=== PATIENT | female | born 2005 | race Caucasian/White ===

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

== ENCOUNTER 2023-02-09 17:02 | Outpatient (CLI) | payer MEDICAID ==
[~2023-02-09] VITALS: Ht 157.5 cm; Wt 62.2 kg
[~2023-02-09 17:02] MED LIST: CEFD300C3 PO
[2023-02-09 17:30] VITALS: BP 123/93
[2023-02-09 17:49] LABS: CLARITY,URINE CLEAR; COLOR,URINE YELLOW; PROTEIN,URINE 1+ (NEGATIVE)
[2023-02-09 17:50] LABS: AMORPHOUS SEDIMENT,UR MOD AMOR URATES /LPF; BACTERIA,URINE FEW /HPF; BILIRUBIN,URINE NEGATIVE (NEGATIVE); GLUCOSE, URINE (UA) NEGATIVE (NEGATIVE); KETONES,URINE NEGATIVE (NEGATIVE); LEUKOCYTE ESTERASE ,URINE TRACE (NEGATIVE); NITRITE,URINE NEGATIVE (NEGATIVE); RBC,URINE 0-2 /HPF
[2023-02-09 17:55] VITALS: BP 122/77
--- NOTE | 2023-02-10 08:37 | Physician Query-Final Dx ---
,02/10/23 0837: Clinic Account Progress/Dx Physician Query: Please give diagnosis Please include # weeks gestation Date of Service Feb 09, 2023 at 17:02 BENEDICTO PERLA MD 02/10/232000: Clinic Account Progress/Dx DIAGNOSIS: Diagnosis: (1) 32 weeks gestation of (2) Uterine contractions Diagnosis 17yo F at 32weeks gestation presenting for contractions. Progress Note: Per Ob triage staff, baby looked good on monitor, vital signs were stable and there were no contractions noted on the monitor. Thus patient was ultimately discharged home with return precautions. PENNY MAYS MD 02/11/23 193: Clinic Account Progress/Dx DIAGNOSIS: Diagnosis 32 weeks gestation Abdominal pain complicating , no contractions recorded on toco ,JunFeb 10, 2023 08:37 BENEDICTO PERLA MD Feb 10, 2023 20:01 PENNY MAYS MD Feb 11, 2023 19:31
== END 2023-02-09 18:35 ==
LOC: LDRP 17:02 → WSo 17:02
PROVIDERS: ATTEND Family Medicine
DX: O62.9 Abnormality of forces of labor, unspecified (principal); Z3A.32 32 weeks gestation of pregnancy
CPT/HCPCS: 81000; 99213

== ENCOUNTER 2023-03-13 11:05 | Inpatient (IN) | payer MEDICAID ==
[2023-03-13] VITALS (20 sets, daily range): BP systolic 100–136; BP diastolic 62–93
[~2023-03-13] VITALS: Ht 157.5 cm; Wt 65.0 kg
[2023-03-13] MEDS ORDERED: LACTATED RINGERS 1,000 ML 500 ML IV PRN (12:00)
[2023-03-13] MEDS ORDERED: MINERAL OIL 30 ML UDC TOP PRN (12:00)
[2023-03-13] MEDS ORDERED: LACTATED RINGERS 1,000 ML 1,000 ML IV ONE (12:16)
[2023-03-13 12:45] LABS: BASOPHILS % (AUTO) 0 % (0-10); EOSINOPHILS % (AUTO) 1 % (0-10); HEMATOCRIT 39 % (35-52); HEMOGLOBIN 12.8 g/dL (11.5-16.0); LYMPHOCYTES # (AUTO) 1.3 10^3/uL (1.0-4.0); LYMPHOCYTES % (AUTO) 22 % (12-44); MEAN CORPUSCULAR HEMOGLOBIN 28 pg (25-34); MEAN CORPUSCULAR HGB CONC 33 g/dL (32-36); MEAN CORPUSCULAR VOLUME 83 fL (80-99); MEAN PLATELET VOLUME 10.9 fL (9.0-12.2); MONOCYTES # (AUTO) 0.4 10^3/uL (0.0-1.0); MONOCYTES % (AUTO) 7 % (0-12); NEUTROPHILS # (AUTO) 4.1 10^3/uL (1.8-7.8); NEUTROPHILS % (AUTO) 71 % (42-75); PLATELET COUNT 181 10^3/uL (130-400); WHITE BLOOD COUNT 5.9 10^3/uL (4.3-11.0)
[2023-03-13] MEDS: D5 LR 1,000 ML IV SOLN 1,000 ML IV SCH ×2 (13:29→22:00)
--- NOTE | 2023-03-13 14:24 | History & Physical-OB ---
OB - Chief Complaint & HPI Date/Time Date of Admission: Date of Admission: Mar 13, 2023 at 11:05 Date seen by a Provider: Mar 13, 2023 Time Seen by a Provider: 13:40 Chief Complaint/History Hx : 2 Hx Para: 0 Expected Date of Delivery: Mar 03, 2024 Gestational Age in Weeks: 37 Gestational Age in Days: 0 Indication for induction: medical complication Other reason for admission: at 37w0d, presented for routine Ob care yesterday to clinic, fundal height was low, NST was reactive and US was ordered. Results this morning showed measuring 33w3d, EFW 2050 grams, < 2%. Sent to Labor and Delivery for induction for IUGR. Admission Nurse Assessment Rev: Yes History of Labs B+, antibody neg, RI. HIV/HepB/HepC/RPR NR. GC/chlamydia neg. 1 hour glucola neg. Cell free DNA normal/low risk. GBS pending. Allergies and Home Medications Allergies Coded Allergies: No Known Drug Allergies (Unverified , 03/30/12) Patient Home Medication List Home Medication List Reviewed: Yes Fluoxetine HCl (Fluoxetine HCl) 20 Mg Capsule, 20 MG PO DAILY, (Reported) Entered as Reported by: PENNY MAYS on 03/13/231428 Last Action: New Order Miconazole Nitrate (Miconazole 7) 2 % Cream.appl, 1 SUPP VG DAILY, (Reported) Entered as Reported by: PENNY MAYS on 03/13/231428 Last Action: New Order Pnv95/Ferrous Fumarate/FA ( Vitamin Tablet) 28 Mg Iron-800 Mcg Tablet, 1 EACH PO DAILY, (Reported) Entered as Reported by: PENNY MAYS on 03/13/231428 Last Action: New Order OB - History Hx of Present Ultrasounds: Normal mid trimester US (Anatomy US at 20 weeks, normal anatomy, placenta 1 cm from os, repeat US at 31 weeks with placenta 6 cm from os), Abnormal US findings (US on 03/12 at 36w6d, measuring 33w3d, EFW 2050, NATALIE normal and infant vertex) Obstetrical Complications: Growth Restriction Medical Complications: Psychiatric (depression) Obstetrical History Hx : 2 Hx Para: 0 Hx # Term Pregnancies: 0 Hx # Pregnancies: 0 Number of Living Children: 0 Hx Termination: No Hx Total # of Abortions (Spona: 1 Hx Multiple Gestation: No Hx Ectopic : No Hx Stillbirth: No Hx Complication: Yes Hx Induced Hypertens: No Hx Maternal Gestational Diabet: No Hx Hemorrhage: No Delivery History Hx Blood Disorders: No Risk Variables Obstetrical Risk Variables: Not POA Anemia, Not POA Asthma, Not POA Autoimmune Disease, Not POA Bariatric Surgery, Not POA Bleeding Disorder, Not POA BMI >= 40, Not POA Cardiac Disease, Not POA Economic Housing Instabil, Not POA Gastrointestinal Disease, Not POA Gestational Diabetes, Not POA HIV, Not POA Hypertension, Not POA Yard Jockey Anticoagulant U; POA Mental Health Disorder; Not POA Multiple , Not POA Neuromuscular Disease, Not POA Obstetrical VTE, Not POA Other Preeclampsia, Not POA Placenta Previa, Not POA Placental Abruption, Not POA Placenta Accreta Spectrum, Not POA Preexisting Diabetes, Not POA , Not POA Previous , Not POA Pulmonary Hypertension, Not POA Renal Disease, Not POA Severe Preeclampsia, Not POA Substance Abuse, Not POA Thyrotoxicosis Patient Past Medical History PMHx: Depression Surghx: Bladder stretch Social History/Family History Alcohol Use: Denies Use Recreational Drug Use: No Smoking Cessation: Never smoker Immunizations Influenza Vaccine Up-to-Date: No; Not Current Tetanus Booster (TDap): Less than 5yrs (02/19/2023) Rubella: immune RPR/VDRL: Negative GBS Status: Unknown HBsAG: Negative OB - Admission Exam Physical Exam Vitals: Vital Signs 03/13/23 11:17 Temp 36.7 Pulse 76 Resp 18 Pulse Ox 97 O2 Delivery Room Air HEENT: NCAT Heart: Rhythm Normal Lungs: Clear Abdomen: Gravid Extremities: Normal Cervical Dilatation: 1cm (per nursing exam) Effacement: Other (60%) Station: -3 Membranes: Intact Heart Rate: 120's Accelerations: Accelerations Present Decelerations: No Decelerations Short Term Variability: Present Yard Jockey Variability: Average (6-25) Contractions on Admission: >10 Minutes Apart Intensity: Mild Ruby Scoring Tool (Modified) Dilation (cm): 1-2cm (1) Effacement (%): 51-79% (2) Descent/Station: -3 (0) Cervix Consistency: Firm (0) Cervix Position: Posterior (0) Subtract 1 point for: Nulliparity (-1) Ruby Score: 2 Labs Laboratory Tests Test 03/13/23 12:42 Range/Units White Blood Count 5.9 4.3-11.0 10^3/uL Red Blood Count 4.66 3.80-5.11 10^6/uL Hemoglobin 12.8 11.5-16.0 g/dL Hematocrit 39 35-52 % Mean Corpuscular Volume 83 80-99 fL Mean Corpuscular Hemoglobin 28 25-34 pg Mean Corpuscular Hemoglobin Concent 33 32-36 g/dL Red Cell Distribution Width 13.0 10.0-14.5 % Platelet Count 181 130-400 10^3/uL Mean Platelet Volume 10.9 9.0-12.2 fL Immature Granulocyte % (Auto) 0 % Neutrophils (%) (Auto) 71 42-75 % Lymphocytes (%) (Auto) 22 12-44 % Monocytes (%) (Auto) 7 0-12 % Eosinophils (%) (Auto) 1 0-10 % Basophils (%) (Auto) 0 0-10 % Neutrophils # (Auto) 4.1 1.8-7.8 10^3/uL Lymphocytes # (Auto) 1.3 1.0-4.0 10^3/uL Monocytes # (Auto) 0.4 0.0-1.0 10^3/uL Eosinophils # (Auto) 0.0 0.0-0.3 10^3/uL Basophils # (Auto) 0.0 0.0-0.1 10^3/uL Immature Granulocyte # (Auto) 0.0 0.0-0.1 10^3/uL Syphilis Total Antibody Negative Negative OB - Assessment/Plan/Diagnosis Assessment Admission Dx Term intrauterine at 37 weeks gestation Suspected IUGR with EFW 2049, < 2nd% per US yesterday Maternal depression on fluoxetine Maternal yeast infection on miconazole GBS unknown (obtained 03/12, result pending) Admission Status: Inpatient Order (span 2 midnights) Reason for Inpatient Admission: Labor, delivery and course Plan Plan: Induction Induction Method: per Misoprostol Protocol PENNY MAYS MD Mar 13, 2023 14:24
[2023-03-13] MEDS ORDERED: FLUO20CA48 PO (14:29)
[2023-03-13] MEDS ORDERED: PNV91TAB6 PO (14:29)
[2023-03-13] MEDS ORDERED: MICO45CR16 VG (14:29)
[2023-03-13] MEDS ORDERED: AMPICILLIN (IV) 2,000 MG in NS (IVPB) 50 ML 50 ML IV ONE (15:00)
[2023-03-13] MEDS: CATHETER FLUSH 10 ML SYR IV SCH ×2 (15:31→22:00)
[2023-03-13] MEDS: AMPICILLIN (IV) 1,000 MG in NS (IVPB) 50 ML 50 ML IV SCH ×2 (19:29→23:31)
[2023-03-14] VITALS (54 sets, daily range): BP systolic 99–148; BP diastolic 56–92
[2023-03-14] MEDS: AMPICILLIN (IV) 1,000 MG in NS (IVPB) 50 ML 50 ML IV SCH ×3 (03:31→11:45)
[2023-03-14] MEDS ORDERED: fentaNYL INJECTION 100 MCG/2 ML VIAL ONE ×2 (05:55→10:43)
[2023-03-14] MEDS ORDERED: ONDANSETRON INJECTION 4 MG/2 ML (SDV) ONE (05:56)
[2023-03-14] MEDS: fentaNYL INJECTION 100 MCG/2 ML VIAL IVP PRN ×4 (06:00→10:14)
[2023-03-14] MEDS ORDERED: ONDANSETRON INJECTION 4 MG/2 ML (SDV) IVP PRN (06:00)
[2023-03-14] MEDS: CATHETER FLUSH 10 ML SYR IV SCH (06:10)
[2023-03-14] MEDS: D5 LR 1,000 ML IV SOLN 1,000 ML IV SCH (06:17)
[2023-03-14] MEDS ORDERED: OXYTOCIN DRIP PRE-MIX 500 ML IV SCH ×2 (08:00→16:15)
[2023-03-14] MEDS ORDERED: OXYTOCIN DRIP PRE-MIX 500 ML IV ONE (08:01)
[2023-03-14] MEDS: LACTATED RINGERS 1,000 ML 1,000 ML IV SCH ×2 (09:40→13:02)
[2023-03-14] MEDS ORDERED: fentaNYL 2 mcg/ml BUPIVA 0.125 100 ML ONE (09:45)
--- NOTE | 2023-03-14 10:20 | Labor Progress Note ---
Labor Progress Note Labor Progress Note Date Seen by Provider: Mar 14, 2023 Time Seen by Provider: 09:00 Subjective: Pt denies complaints. Uncomfortable with contractions. Pitocin has been started and is currently a 4. Objective: Labial swelling noted. Cervical exam: 2 Consistency: soft Position: mid-ant Presentation: vtx heart tones: reactive Tocometer: q2-3 min Assessment/Plan: Keiry Ortega is a (17 /Para 2 / 0,Gestational Age (wks)37 here for IOL for IUGR. AROM with FSE per Dr. Hernandez - not picking up FHT so EFM will be used. Will replace after epidural is placed due to discomfort with exam. CEFM/TOCO Continue pitocin Anesthesia: will have epidural placed at this time Anticipate vaginal delivery. Vitals - Labs Vital Signs - I&O Vital Signs Date Time Temp Pulse Resp B/P (MAP) Pulse Ox O2 Delivery O2 Flow Rate FiO2 03/14/23 08:15 72 18 131/91 (104) Room Air 03/14/23 08:05 36.4 67 18 128/88 (101) Room Air 03/14/23 08:00 65 16 117/79 (92) Room Air 03/14/23 07:00 67 16 121/70 (87) Room Air 03/14/23 05:55 36.4 60 16 121/73 (89) Room Air 03/14/23 04:00 36.7 60 16 111/73 (86) Room Air 03/14/23 02:55 71 16 110/69 (83) Room Air 03/14/23 01:55 36.4 72 16 124/83 (97) Room Air 03/14/23 00:55 73 16 125/85 (98) Room Air 03/13/23 23:35 36.9 70 16 112/77 (89) Room Air 03/13/23 22:35 71 16 100/62 (75) Room Air 03/13/23 21:35 36.1 72 16 124/77 (93) Room Air 03/13/23 20:35 78 16 125/81 (96) Room Air 03/13/23 19:35 36.1 68 16 130/82 (98) Room Air 03/13/23 19:30 67 16 113/74 (87) Room Air 03/13/23 19:02 68 18 107/65 (79) Room Air 03/13/23 18:30 36.9 76 18 120/79 (93) Room Air 03/13/23 18:00 85 18 126/81 (96) Room Air 03/13/23 17:30 36.8 71 18 127/93 (104) Room Air 03/13/23 17:00 85 18 126/81 (96) Room Air 03/13/23 16:30 72 18 125/82 (96) Room Air 03/13/23 16:00 74 18 115/80 (92) Room Air 03/13/23 15:30 79 18 123/75 (91) Room Air 03/13/23 15:00 18 Room Air 03/13/23 14:30 81 18 124/81 (95) Room Air 03/13/23 14:00 90 18 133/89 (104) Room Air 03/13/23 13:30 77 18 136/80 (98) Room Air 03/13/23 13:00 79 18 127/90 (102) Room Air 03/13/23 11:17 36.7 76 18 97 Room Air 03/13/23 11:15 36.7 76 18 124/72 (89) 97 Room Air I & O 03/14/23 07:00 Intake Total 2714.8 ml Balance 2714.8 ml Labs Laboratory Tests 03/13/23 12:42: White Blood Count 5.9, Red Blood Count 4.66, Hemoglobin 12.8, Hematocrit 39, Mean Corpuscular Volume 83, Mean Corpuscular Hemoglobin 28, Mean Corpuscular Hemoglobin Concent 33, Red Cell Distribution Width 13.0, Platelet Count 181, Mean Platelet Volume 10.9, Immature Granulocyte % (Auto) 0, Neutrophils (%) (Auto) 71, Lymphocytes (%) (Auto) 22, Monocytes (%) (Auto) 7, Eosinophils (%) (Auto) 1, Basophils (%) (Auto) 0, Neutrophils # (Auto) 4.1, Lymphocytes # (Auto) 1.3, Monocytes # (Auto) 0.4, Eosinophils # (Auto) 0.0, Basophils # (Auto) 0.0, Immature Granulocyte # (Auto) 0.0, Syphilis Total Antibody Negative BRENDON MITCHELL DO Mar 14, 2023 10:20
[2023-03-14] MEDS ORDERED: BUPIVACAINE 0.25% 10 ML VIAL ONE (10:43)
[2023-03-14] MEDS ORDERED: NALOXONE 0.4 MG/ML 1 ML VIAL IV PRN (11:30)
[2023-03-14] MEDS ORDERED: fentaNYL 2 mcg/ml BUPIVA 0.125 100 ML EPI SCH (11:30)
[2023-03-14] MEDS ORDERED: ONDANSETRON INJECTION 4 MG/2 ML (SDV) IV PRN (11:30)
[2023-03-14] MEDS: diphenhydrAMINE INJ 50 MG/ML VIAL IV PRN ×3 (12:20→21:33)
--- NOTE | 2023-03-14 14:28 | Labor Progress Note ---
Labor Progress Note Labor Progress Note Date Seen by Provider: Mar 14, 2023 Time Seen by Provider: 13:45 Contacted by resident for development of Category III tracing. Internal FSE was placed and FHT had variable and recurrent late decelerations. Pitocin was discontinued (previously at 10), patient was repositioned and bolus of IVF was given. Tachysytole was noted with 6-7 contractions in 10 min. Upon my arrival, FHT was improved, contractions 5 min apart, decels resolved, FHT 120s. Currently, Category I tracing after pitocin has been discontinued for about 30 min. Objective: Cervical exam: 4 heart tones: 120 beats per minute, moderate variability, reactive with accelerations. Tocometer: contractions every 5 min. Assessment/Plan: Keiry Ortega is a (17 /Para 2 / 0,Gestational Age (wks)37 here for IOL for IUGR. CIFM/TOCO Will resume Pitocin at 2 Anesthesia: Epidural Discussed with patient intolerance which has now improved. Discussed that if distress reoccurs after restarting pitocin will need to consider c- section delivery. strip current reassuring. Dr. Cormier, division controller warehouse distribution manager updated by Dr. Hernandez. Vitals - Labs Vital Signs - I&O Vital Signs Date Time Temp Pulse Resp B/P (MAP) Pulse Ox O2 Delivery O2 Flow Rate FiO2 03/14/23 10:30 78 18 118/81 (93) Room Air 03/14/23 10:15 74 18 122/85 (97) Room Air 03/14/23 10:00 72 18 124/83 (97) Room Air 03/14/23 09:45 65 18 116/82 (93) Room Air 03/14/23 09:30 74 18 127/87 (100) Room Air 03/14/23 09:15 80 18 119/81 (94) Room Air 03/14/23 09:00 65 18 118/82 (94) Room Air 03/14/23 08:45 65 18 120/64 (82) Room Air 03/14/23 08:30 67 18 133/85 (101) Room Air 03/14/23 08:15 72 18 131/91 (104) Room Air 03/14/23 08:05 36.4 67 18 128/88 (101) Room Air 03/14/23 08:00 65 16 117/79 (92) Room Air 03/14/23 07:00 67 16 121/70 (87) Room Air 03/14/23 05:55 36.4 60 16 121/73 (89) Room Air 03/14/23 04:00 36.7 60 16 111/73 (86) Room Air 03/14/23 02:55 71 16 110/69 (83) Room Air 03/14/23 01:55 36.4 72 16 124/83 (97) Room Air 03/14/23 00:55 73 16 125/85 (98) Room Air 03/13/23 23:35 36.9 70 16 112/77 (89) Room Air 03/13/23 22:35 71 16 100/62 (75) Room Air 03/13/23 21:35 36.1 72 16 124/77 (93) Room Air 03/13/23 20:35 78 16 125/81 (96) Room Air 03/13/23 19:35 36.1 68 16 130/82 (98) Room Air 03/13/23 19:30 67 16 113/74 (87) Room Air 03/13/23 19:02 68 18 107/65 (79) Room Air 03/13/23 18:30 36.9 76 18 120/79 (93) Room Air 03/13/23 18:00 85 18 126/81 (96) Room Air 03/13/23 17:30 36.8 71 18 127/93 (104) Room Air 03/13/23 17:00 85 18 126/81 (96) Room Air 03/13/23 16:30 72 18 125/82 (96) Room Air 03/13/23 16:00 74 18 115/80 (92) Room Air 03/13/23 15:30 79 18 123/75 (91) Room Air 03/13/23 15:00 18 Room Air 03/13/23 14:30 81 18 124/81 (95) Room Air I & O 03/14/23 07:00 Intake Total 2714.8 ml Balance 2714.8 ml BRENDON MITCHELL DO Mar 14, 2023 14:28
[2023-03-14] MEDS ORDERED: LIDOCAINE 2% w/EPI 1:200,000 20 ML VIAL ONE (15:09)
[2023-03-14] MEDS ORDERED: BENZOCAINE/MENTHOL (DERMOPLAST) 56 ML CAN TP PRN (16:15)
[2023-03-14] MEDS ORDERED: WITCH HAZEL(TUCKS) 40 EA JAR TOP PRN (16:15)
--- NOTE | 2023-03-14 16:18 | OB Labor & Delivery Record ---
MARIANELA SONI MD,RESIDENT 03/14/23 1618: Vag Delivery Note Vag Delivery Note Date of Delivery: 03/14/23 Preoperative Diagnosis: Keiry nunn a (17 /Para 2 / 0,Gestational Age (wks)37with IUGR Postoperative Diagnosis: Same Attending Surgeon/Physician: Brendon Zendejas DO Resident Physician: Marianela Soni MD Ent Surgeon: Anesthesia: Epidural Delivery Type: Spontaneous vaginal delivery Findings: Viable male , apgars 8, 9, weight 5lbs Lacerations: 1st degree; bilateral hemostatic labial abrasions Intact placenta with 3 vessel cord. Nuchal cord x1. No body cord or shoulder dystocia Estimated Blood Loss: 100 ml Complications: None Condition: Stable Description of Procedure: The patient is a 17 year old female who presented for IOL for IUGR. She was admitted and informed consent was obtained. Her labor course was uncomplicated. She progressed to complete dilatation and began to push. She was then set up for delivery. The 's head was delivered atraumatically in the KALYANI position. The shoulders and remainder of the 's body were then delivered without difficulty. Upon delivery, the infant was vigorous and placed on maternal chest and the mouth and nares were bulb suctioned. After a delay cord was doubly clamped and cut and the infant remained on maternal chest. An intact placenta with 3-vessel cord delivered via Asael and there was found to be minimal bleeding.~ Vigorous fundal massage was performed and the fundus was found to be firm. IV oxytocin was given. Examination of the vagina and perineum revealed a 1st degree laceration repaired in the usual fashion with 3-0 vicryl rapide suture, and 2 bilateral labial abrasions. Following the repair, sponge, instrument and needle counts were correct. Mom and baby were both in stable condition in the labor suite. Vitals - Labs Vital Signs - I&O Vital Signs Date Time Temp Pulse Resp B/P (MAP) Pulse Ox O2 Delivery O2 Flow Rate FiO2 03/14/23 12:15 67 18 113/75 (88) 93 Room Air 03/14/23 12:00 67 18 107/74 (85) 93 Room Air 03/14/23 11:45 77 18 123/74 (90) 95 Room Air 03/14/23 11:40 65 18 118/76 (90) 94 Room Air 03/14/23 11:35 67 18 117/75 (89) 94 Room Air 03/14/23 11:30 70 18 113/66 (82) 97 Room Air 03/14/23 11:25 68 18 129/72 (91) 94 Room Air 03/14/23 11:20 82 18 120/80 (93) 96 Room Air 03/14/23 11:15 69 18 131/83 (99) 97 Room Air 03/14/23 11:10 82 18 141/92 (108) 98 Room Air 03/14/23 11:05 74 18 119/88 (98) 98 Room Air 03/14/23 11:00 75 18 128/91 (103) 98 Room Air 03/14/23 10:45 78 18 134/87 (103) 100 Room Air 03/14/23 10:30 78 18 118/81 (93) Room Air 03/14/23 10:15 74 18 122/85 (97) Room Air 03/14/23 10:00 72 18 124/83 (97) Room Air 03/14/23 09:45 65 18 116/82 (93) Room Air 03/14/23 09:30 74 18 127/87 (100) Room Air 03/14/23 09:15 80 18 119/81 (94) Room Air 03/14/23 09:00 65 18 118/82 (94) Room Air 03/14/23 08:45 65 18 120/64 (82) Room Air 03/14/23 08:30 67 18 133/85 (101) Room Air 03/14/23 08:15 72 18 131/91 (104) Room Air 03/14/23 08:05 36.4 67 18 128/88 (101) Room Air 03/14/23 08:00 65 16 117/79 (92) Room Air 03/14/23 07:00 67 16 121/70 (87) Room Air 03/14/23 05:55 36.4 60 16 121/73 (89) Room Air 03/14/23 04:00 36.7 60 16 111/73 (86) Room Air 03/14/23 02:55 71 16 110/69 (83) Room Air 03/14/23 01:55 36.4 72 16 124/83 (97) Room Air 03/14/23 00:55 73 16 125/85 (98) Room Air 03/13/23 23:35 36.9 70 16 112/77 (89) Room Air 03/13/23 22:35 71 16 100/62 (75) Room Air 03/13/23 21:35 36.1 72 16 124/77 (93) Room Air 03/13/23 20:35 78 16 125/81 (96) Room Air 03/13/23 19:35 36.1 68 16 130/82 (98) Room Air 03/13/23 19:30 67 16 113/74 (87) Room Air 03/13/23 19:02 68 18 107/65 (79) Room Air 03/13/23 18:30 36.9 76 18 120/79 (93) Room Air 03/13/23 18:00 85 18 126/81 (96) Room Air 03/13/23 17:30 36.8 71 18 127/93 (104) Room Air 03/13/23 17:00 85 18 126/81 (96) Room Air 03/13/23 16:30 72 18 125/82 (96) Room Air I & O 03/14/23 07:00 Intake Total 2714.8 ml Balance 2714.8 ml BRENDON ZENDEJAS DO 03/15/23 1027: Supervisory-Addendum Brief Supervisory Addendum I personally have seen and evaluated the patient and performed the physical exam and was present and participated in the delivery. I agree with the documented assessment and plan. MARIANELA SONI MD,RESIDENT Mar 14, 2023 16:18 BRENDON ZENDEJAS DO Mar 15, 2023 10:27
[2023-03-14] MEDS: IBUPROFEN 600 MG TABLET PO SCH ×2 (17:27→23:35)
[2023-03-14] MEDS: DOCUSATE SODIUM 100 MG CAPSULE PO SCH (20:14)
[2023-03-14] MEDS ORDERED: CATHETER FLUSH 10 ML SYR IV SCH (22:00)
[2023-03-15 04:55] VITALS: BP 128/85
[2023-03-15] MEDS: IBUPROFEN 600 MG TABLET PO SCH ×4 (05:50→17:46)
[2023-03-15 06:26] LABS: BASOPHILS % (AUTO) 0 % (0-10); EOSINOPHILS # (AUTO) 0.1 10^3/uL (0.0-0.3); EOSINOPHILS % (AUTO) 1 % (0-10); HEMATOCRIT 35 % (35-52); HEMOGLOBIN 11.7 g/dL (11.5-16.0); LYMPHOCYTES # (AUTO) 2.4 10^3/uL (1.0-4.0); LYMPHOCYTES % (AUTO) 25 % (12-44); MEAN CORPUSCULAR HEMOGLOBIN 29 pg (25-34); MEAN CORPUSCULAR HGB CONC 33 g/dL (32-36); MEAN CORPUSCULAR VOLUME 86 fL (80-99); MEAN PLATELET VOLUME 11.3 fL (9.0-12.2); MONOCYTES # (AUTO) 0.8 10^3/uL (0.0-1.0); MONOCYTES % (AUTO) 8 % (0-12); NEUTROPHILS # (AUTO) 6.4 10^3/uL (1.8-7.8); NEUTROPHILS % (AUTO) 66 % (42-75); PLATELET COUNT 157 10^3/uL (130-400); WHITE BLOOD COUNT 9.7 10^3/uL (4.3-11.0)
[2023-03-15] MEDS ORDERED: PRENATAL VITAMIN TABLET PO SCH (07:00)
[2023-03-15] MEDS: DOCUSATE SODIUM 100 MG CAPSULE PO SCH (08:54)
[2023-03-15 08:55] VITALS: BP 121/88
[2023-03-15 12:12] VITALS: BP 122/80
[2023-03-15] MEDS ORDERED: FLU QUADRIvalent (6 months+) 60 mcg/0.5 ml 2023-2024 (FLUARIX) IM ONE (12:15)
[2023-03-15] MEDS ORDERED: IBUP-844 PO (16:08)
--- NOTE | 2023-03-15 16:11 | Discharge Summary ---
Discharge Summary Hospital Course Hospital Course Date of Admission: Mar 13, 2023 at 11:05 Admission Diagnosis : 1. G1 at 37wk GA with IOL for IUGR 2. unknown GBS Family Physician/Provider: Rosemary Borges MD Date of Discharge: 03/15/23 Discharge Diagnosis: 1. G1 at 37wk GA with IOL for IUGR s/p on 03/14/23 2. unknown GBS - adequately treated with IV antibiotics Hospital Course: Patient admitted for IOL at 37wk due to IUGR on recent ultrasound. Cervical ripening with Cytotec followed by Pitocin and AROM. Patient delivered via on 03/14/23, did well after delivery. Routine course. Labs and Pending Lab Test: Laboratory Tests 03/15/23 05:50: White Blood Count 9.7, Red Blood Count 4.10, Hemoglobin 11.7, Hematocrit 35, Mean Corpuscular Volume 86, Mean Corpuscular Hemoglobin 29, Mean Corpuscular Hemoglobin Concent 33, Red Cell Distribution Width 13.0, Platelet Count 157, Mean Platelet Volume 11.3, Immature Granulocyte % (Auto) 0, Neutrophils (%) (Auto) 66, Lymphocytes (%) (Auto) 25, Monocytes (%) (Auto) 8, Eosinophils (%) (Auto) 1, Basophils (%) (Auto) 0, Neutrophils # (Auto) 6.4, Lymphocytes # (Auto) 2.4, Monocytes # (Auto) 0.8, Eosinophils # (Auto) 0.1, Basophils # (Auto) 0.0, Immature Granulocyte # (Auto) 0.0 Home Meds Active Ibu (Ibuprofen) 600 Mg Tablet 600 Mg PO Q6H PRN Reported Vitamin Tablet (Pnv95/Ferrous Fumarate/FA) 28 Mg Iron-800 Mcg Tablet 1 Each PO DAILY Fluoxetine HCl 20 Mg Capsule 20 Mg PO DAILY Miconazole 7 (Miconazole Nitrate) 2 % Cream.appl 1 Supp VG DAILY Assessment/Pt DC Instructions Follow up with Dr. Younger on DC. Discharge Physical Examination Allergies: Coded Allergies: No Known Drug Allergies (Unverified , 03/30/12) General Appearance: No Apparent Distress, WD/WN HEENT: PERRL/EOMI Respiratory: No Respiratory Distress Neurologic/Psychiatric: Alert, Oriented x3 BRENDON MITCHELL DO Mar 15, 2023 16:11
--- NOTE | 2023-03-16 10:22 | Anesthesia-Regional Post-Op ---
Regional Patient Condition Mental Status: Alert, Oriented x3 Circulation: Same as Pre-Op Headache: Absent Sensation: Full Recovery Motor Block: Absent Post Op Complications Complications None Follow Up Care/Instructions Patient Instructions None needed. Anesthesia/Patient Condition Patient is doing well, no complaints, stable vital signs, no apparent adverse anesthesia problems. No complications reported per nursing. KEIRA CORONADO CRNA Mar 16, 2023 10:22
== END 2023-03-15 19:50 | disposition home or self-care (01) | DRG 806 ==
LOC: LDRP 11:05
PROVIDERS: ADMIT Family Medicine; ATTEND Family Medicine
PROC: 10E0XZZ Delivery of Products of Conception, External Approach (ICD-10-PCS; principal; 2023-03-14)
PROC: 0HQ9XZZ Repair Perineum Skin, External Approach (ICD-10-PCS; 2023-03-14)
PROC: 10907ZC Drainage of Amniotic Fluid, Therapeutic from Products of Conception, Via Natural or Artificial Opening (ICD-10-PCS; 2023-03-14)
PROC: 3E0P7VZ Introduction of Hormone into Female Reproductive, Via Natural or Artificial Opening (ICD-10-PCS; 2023-03-14)
PROC: 3E033VJ Introduction of Other Hormone into Peripheral Vein, Percutaneous Approach (ICD-10-PCS; 2023-03-14)
DX: O36.5930 Maternal care for other known or suspected poor fetal growth, third trimester, not applicable or unspecified (principal); O98.82 Other maternal infectious and parasitic diseases complicating childbirth; Z37.0 Single live birth; B37.31 Acute candidiasis of vulva and vagina; O70.0 First degree perineal laceration during delivery; O69.81X0 Labor and delivery complicated by cord around neck, without compression, not applicable or unspecified; O99.344 Other mental disorders complicating childbirth; F32.A Depression, unspecified; Z3A.37 37 weeks gestation of pregnancy
CPT/HCPCS: 36415; 85025; 86780; 86850; 86900; 86901; 90686